=== PATIENT | male | born 1935 | race Caucasian/White ===

== ENCOUNTER 2022-12-20 22:36 | Inpatient (IN) | payer OTHER, MEDICAID ==
[~2022-12-20] VITALS: Ht 177.8 cm; Wt 93.4 kg
[2022-12-20 22:38] VITALS: BP_SYST 145; PULSE 74; RESP 24; TEMP 98; O2SAT 95
[2022-12-20] MEDS ORDERED: NACL 0.9% 1,000 ML IV ONE (22:45)
[2022-12-20 23:27] LABS: BASOPHILS % (AUTO) 0.6 % (0.0-2.0); EOSINOPHILS # (AUTO) 0.1 K/uL (0.0-0.4); EOSINOPHILS % (AUTO) 0.9 % (0.0-4.0); HEMOGLOBIN 8.4 g/dL (14.0-18.0); LYMPHOCYTES # (AUTO) 0.7 K/uL (1.0-5.5); LYMPHOCYTES % (AUTO) 8.5 % (20.5-51.5); MEAN CORPUSCULAR HEMOGLOBIN 23 pg (27-31); MEAN CORPUSCULAR HGB CONC 30 % (32-36); MEAN CORPUSCULAR VOLUME 76 fL (79.0-98.0); MONOCYTES # (AUTO) 1.1 K/uL (0.0-1.0); MONOCYTES % (AUTO) 12.7 % (1.7-9.3); NEUTROPHILS # (AUTO) 6.5 K/uL (1.8-7.7); NEUTROPHILS % (AUTO) 77.3 % (40.0-70.0); PLATELET COUNT (AUTO) 109 K/uL (130-430); RED BLOOD CELL COUNT(AUTO) 3.67 MIL/uL (4.2-6.2); RED CELL DISTRIBUTION WIDTH 19.4 % (9.0-15.0); WHITE BLOOD COUNT (AUTO) 8.4 K/uL (4.8-10.8)
[2022-12-21] VITALS (30 sets, daily range): BP systolic 77–131; PULSE 59–79; RESP 16–29; TEMP 97.5–98.8; O2SAT 93–100
[2022-12-21 00:04] LABS: PROTHROMBIN TIME 10.4 SECS (9.5-12.5)
[2022-12-21 00:07] LABS: CALCIUM 7.8 mg/dL (8.4-11.0); CHLORIDE 99 mmol/L (98-107); CREATININE 2.05 mg/dL (0.55-1.30); GLUCOSE 244 mg/dL (74-106); POTASSIUM 5.3 mmol/L (3.5-5.1); SODIUM SERUM 137 mmol/L (136-145); UREA NITROGEN, BLOOD 30 mg/dL (8-21)
[2022-12-21] MEDS ORDERED: cefTRIAXone 1 GM IVPB PREMIX 50 ML IV ONE (00:15)
[2022-12-21 00:16] LABS: ALANINE AMINOTRANSFERASE 17 U/L (12-78); ALBUMIN 2.8 g/dL (3.4-4.8); ASPARTATE AMINOTRANSFERASE 13 U/L (10-37); LIPASE 33 U/L (73-393); TOTAL BILIRUBIN 0.4 mg/dL (0.0-1.0); TOTAL PROTEIN, SERUM 6.2 g/dL (6.4-8.3)
[2022-12-21 00:18] LABS: BILIRUBIN,URINE NEGATIVE (NEGATIVE); CLARITY/URINE Clear (CLEAR); COLOR,URINE YELLOW (YELLOW); GLUCOSE,URINE NEGATIVE (NEGATIVE); KETONES,URINE NEGATIVE (NEGATIVE); LEUKOCYTE ESTERASE ,URINE 3+ (NEGATIVE); NITRITE, URINE NEGATIVE (NEGATIVE); PH,URINE 5.5 (5.0-8.0); PROTEIN URINE NEGATIVE (NEGATIVE); UROBILINOGEN,URINE 0.2 (0.2-1.0)
[2022-12-21 00:19] LABS: ANION GAP 0 (5-15); CARBON DIOXIDE 40 mmol/L (23-29)
[2022-12-21 00:23] LABS: BLOOD, URINE TRACE (NEGATIVE)
[2022-12-21 00:27] LABS: BACTERIA,URINE MODERATE /HPF (None Seen); RBC,URINE >100 /HPF (0-3); WBC,URINE >100 /HPF (0-3)
[2022-12-21] MEDS ORDERED: CALCIUM GLUC 1 GM/100ML-NACL 100 ML IV ONE (00:30)
[2022-12-21] MEDS ORDERED: FUROSEMIDE 40 MG/4 ML VIAL IVP ONE (00:30)
[2022-12-21] MEDS ORDERED: SODIUM POLYSTYRENE SULFONATE 15 GM/60 ML UDBTL PO ONE (00:30)
[2022-12-21] MEDS ORDERED: DEXTROSE 50% JECT 50 ML DISP.SYRIN IVP ONE (00:45)
[2022-12-21] MEDS ORDERED: INSULIN REGULAR, HUMAN 10 UNITS/0.1 ML, 3 ML VIAL IVP ONE (00:45)
[2022-12-21 01:00] LABS: ABG O2 SAT% ESTIMATE 82.1 % (94.0-100.0); BLOOD GAS BASE EXCESS 7.1 mmol/L (-3.0-3.0); BLOOD GAS HCO3 41.5 mmol/L (21.0-27.0); BLOOD GAS PCO2 126.8 mmHg (32.0-45.0); BLOOD GAS PH 7.133 (7.350-7.450); BLOOD GAS PO2 63.2 mmHg (75.0-100.0)
[2022-12-21 01:01] LABS: ALLEN'S TEST POSITIVE (P); FRACTIONATED INSPIRED OXYGEN 0.36 % (0.21-100.00)
[2022-12-21] MEDS ORDERED: PIPERACILLIN/TAZO 2.25G/DEX-IS 50 ML IV ONE (03:00)
[2022-12-21] MEDS ORDERED: PIPERACILLIN/TAZOBACTAM 2.25 GM VIAL IV ONE (03:27)
[2022-12-21] MEDS: D5/0.45 NS 1,000 ML IV SCH ×2 (04:07→13:29)
[2022-12-21 04:43] LABS: COVID19 ANTIGEN SOFIA FIA NEGATIVE (NEGATIVE)
[2022-12-21 05:29] LABS: INFLUENZA TYPE A negative (NEGATIVE); INFLUENZA TYPE B NEGATIVE (NEGATIVE)
[2022-12-21 06:57] LABS: BASOPHILS % (AUTO) 0.2 % (0.0-2.0); HEMATOCRIT 28.1 % (36-54); HEMOGLOBIN 8.2 g/dL (14.0-18.0); LYMPHOCYTES # (AUTO) 0.4 K/uL (1.0-5.5); LYMPHOCYTES % (AUTO) 5.6 % (20.5-51.5); MEAN CORPUSCULAR HEMOGLOBIN 23 pg (27-31); MEAN CORPUSCULAR HGB CONC 29 % (32-36); MEAN CORPUSCULAR VOLUME 78 fL (79.0-98.0); MONOCYTES # (AUTO) 0.6 K/uL (0.0-1.0); MONOCYTES % (AUTO) 8.6 % (1.7-9.3); NEUTROPHILS # (AUTO) 6.3 K/uL (1.8-7.7); NEUTROPHILS % (AUTO) 85.6 % (40.0-70.0); PLATELET COUNT (AUTO) 88 K/uL (130-430); RED BLOOD CELL COUNT(AUTO) 3.63 MIL/uL (4.2-6.2); RED CELL DISTRIBUTION WIDTH 19.3 % (9.0-15.0); WHITE BLOOD COUNT (AUTO) 7.3 K/uL (4.8-10.8)
[2022-12-21 07:57] LABS: ALANINE AMINOTRANSFERASE 17 U/L (12-78); ALBUMIN 2.6 g/dL (3.4-4.8); ANION GAP 2 (5-15); ASPARTATE AMINOTRANSFERASE 18 U/L (10-37); CALCIUM 7.7 mg/dL (8.4-11.0); CARBON DIOXIDE 37 mmol/L (23-29); CHLORIDE 100 mmol/L (98-107); GLUCOSE 214 mg/dL (74-106); SODIUM SERUM 139 mmol/L (136-145); TOTAL BILIRUBIN 0.4 mg/dL (0.0-1.0); TOTAL PROTEIN, SERUM 5.8 g/dL (6.4-8.3); UREA NITROGEN, BLOOD 32 mg/dL (8-21)
[2022-12-21] MEDS ORDERED: NOREPINEPHRINE 4 MG/4 ML VIAL IV ONE (08:02)
[2022-12-21 08:14] LABS: ABG O2 SAT% ESTIMATE 97.9 % (94.0-100.0); BLOOD GAS BASE EXCESS 3.5 mmol/L (-3.0-3.0); BLOOD GAS HCO3 34.6 mmol/L (21.0-27.0); BLOOD GAS PO2 133.5 mmHg (75.0-100.0)
[2022-12-21 08:17] LABS: ALLEN'S TEST POSITIVE (P); BLOOD GAS PH 7.217 (7.350-7.450)
[2022-12-21] MEDS ORDERED: NOREPINEPHRINE BITARTRATE 4 MG in NS 246 ML IV PRN (08:30)
[2022-12-21 09:06] LABS: PROTHROMBIN TIME 10.2 SECS (9.5-12.5)
[2022-12-21] MEDS ORDERED: HEPARIN SODIUM,PORCINE 5,000 UNITS/ML VIAL SUBCUT ONE (09:45)
[2022-12-21] MEDS: IPRATROPIUM/ALBUTEROL SULFATE 3 ML AMPUL.NEB (DUONEB) INH SCH ×4 (11:16→23:09)
[2022-12-21] MEDS: METHYLPREDNISOLONE SOD SUCC 40 MG/ML VIAL IVP SCH (13:25)
[2022-12-21] MEDS: PIPERACILLIN/TAZO 3.375/DEX-IS 50 ML IV SCH ×2 (15:03→22:25)
[2022-12-21] MEDS: HEPARIN SODIUM,PORCINE 5,000 UNITS/ML VIAL SUBCUT SCH ×2 (15:37→22:00)
[2022-12-21] MEDS ORDERED: INSU100I26 SQ (16:45)
[2022-12-21] MEDS ORDERED: FAMO20TA8 PO (16:45)
[2022-12-21] MEDS ORDERED: HYDR-4037 PO (16:45)
[2022-12-21] MEDS ORDERED: CARV3.1246 PO (16:45)
[2022-12-21] MEDS ORDERED: SSNOVOLOG SUBCUT (16:45)
[2022-12-21] MEDS ORDERED: [UNRECOGNIZED DRUG - OTHER] (16:45)
[2022-12-21] MEDS ORDERED: ROSU40TA PO (16:45)
[2022-12-21] MEDS ORDERED: FURO20TA4 PO (16:45)
[2022-12-21] MEDS ORDERED: ISO10 PO (16:45)
[2022-12-21] MEDS ORDERED: LYR25 PO (16:45)
[2022-12-21] MEDS ORDERED: INSULIN ASPART 100 UNITS/ML, 10 ML VIAL (NovoLOG) SUBCUT PRN (17:15)
[2022-12-21] MEDS: hydrALAZINE HCL 10 MG TABLET PO SCH (18:42)
[2022-12-21] MEDS: ISOSORBIDE DINITRATE 10 MG TABLET (ISORDIL) PO SCH (22:22)
[2022-12-21] MEDS: ATORVASTATIN 20 MG TABLET PO SCH (22:22)
[2022-12-21] MEDS: CARVEDILOL 3.125 MG TABLET (COREG) PO SCH (22:24)
[2022-12-21] MEDS: INSULIN LISPRO SLIDING SCALE 100 UNITS/ML, 3 ML VIAL (humaLOG) SUBCUT PRN (23:35)
[2022-12-22] VITALS (9 sets, daily range): BP systolic 103–136; PULSE 62–97; RESP 18–21; TEMP 97.7–98.2; O2SAT 95–98
[2022-12-22] MEDS: hydrALAZINE HCL 10 MG TABLET PO SCH ×3 (00:54→18:02)
[2022-12-22] MEDS: IPRATROPIUM/ALBUTEROL SULFATE 3 ML AMPUL.NEB (DUONEB) INH SCH ×6 (03:00→22:55)
[2022-12-22] MEDS: HEPARIN SODIUM,PORCINE 5,000 UNITS/ML VIAL SUBCUT SCH ×3 (06:00→21:46)
[2022-12-22] MEDS: PIPERACILLIN/TAZO 3.375/DEX-IS 50 ML IV SCH (06:40)
[2022-12-22] MEDS: INSULIN LISPRO SLIDING SCALE 100 UNITS/ML, 3 ML VIAL (humaLOG) SUBCUT PRN ×4 (06:43→21:47)
[2022-12-22 06:54] LABS: HEMATOCRIT 24.8 % (36-54); HEMOGLOBIN 7.6 g/dL (14.0-18.0); MEAN CORPUSCULAR HEMOGLOBIN 23 pg (27-31); MEAN CORPUSCULAR HGB CONC 31 % (32-36); MEAN CORPUSCULAR VOLUME 76 fL (79.0-98.0); RED BLOOD CELL COUNT(AUTO) 3.29 MIL/uL (4.2-6.2); RED CELL DISTRIBUTION WIDTH 19.7 % (9.0-15.0); WHITE BLOOD COUNT (AUTO) 3.4 K/uL (4.8-10.8)
[2022-12-22 07:07] LABS: ALANINE AMINOTRANSFERASE 17 U/L (12-78); ALBUMIN 2.4 g/dL (3.4-4.8); ANION GAP 2 (5-15); ASPARTATE AMINOTRANSFERASE 11 U/L (10-37); CALCIUM 7.6 mg/dL (8.4-11.0); CARBON DIOXIDE 35 mmol/L (23-29); CHLORIDE 100 mmol/L (98-107); CREATININE 2.07 mg/dL (0.55-1.30); GLUCOSE 320 mg/dL (74-106); PHOSPHORUS 2.9 mg/dL (2.7-4.5); POTASSIUM 4.4 mmol/L (3.5-5.1); SODIUM SERUM 137 mmol/L (136-145); TOTAL BILIRUBIN 0.5 mg/dL (0.0-1.0); TOTAL PROTEIN, SERUM 5.6 g/dL (6.4-8.3); UREA NITROGEN, BLOOD 33 mg/dL (8-21)
[2022-12-22 07:44] LABS: ERYTHROCYTE SEDIMENTATION RATE 11 MM/HR (0-15)
[2022-12-22] MEDS: FAMOTIDINE 20 MG TABLET PO SCH (08:53)
[2022-12-22] MEDS: PREGABALIN 25 MG CAPSULE (LYRICA) PO SCH (08:55)
[2022-12-22] MEDS: ISOSORBIDE DINITRATE 10 MG TABLET (ISORDIL) PO SCH ×3 (08:56→21:44)
[2022-12-22] MEDS: CARVEDILOL 3.125 MG TABLET (COREG) PO SCH ×2 (08:56→21:45)
[2022-12-22] MEDS: METHYLPREDNISOLONE SOD SUCC 40 MG/ML VIAL IVP SCH (09:00)
[2022-12-22 09:52] LABS: PLATELET COUNT (AUTO) 97 K/uL (130-430)
[2022-12-22] MEDS: D5/0.45 NS 1,000 ML IV SCH (10:20)
[2022-12-22] MEDS ORDERED: AZITHROMYCIN 250 MG TABLET PO ONE (12:30)
[2022-12-22] MEDS: CEFEPIME 2 GM in D5W 100 ML IV SCH (14:20)
[2022-12-22] MEDS: ATORVASTATIN 20 MG TABLET PO SCH (21:44)
[2022-12-23] VITALS (13 sets, daily range): BP systolic 113–135; PULSE 61–70; RESP 18–20; TEMP 97.8–98.6; O2SAT 95–99
[2022-12-23] MEDS: hydrALAZINE HCL 10 MG TABLET PO SCH ×3 (01:41→17:19)
[2022-12-23] MEDS: IPRATROPIUM/ALBUTEROL SULFATE 3 ML AMPUL.NEB (DUONEB) INH SCH ×6 (03:36→23:11)
[2022-12-23] MEDS: HEPARIN SODIUM,PORCINE 5,000 UNITS/ML VIAL SUBCUT SCH ×3 (06:00→21:23)
[2022-12-23] MEDS: INSULIN LISPRO SLIDING SCALE 100 UNITS/ML, 3 ML VIAL (humaLOG) SUBCUT PRN ×4 (06:00→20:21)
[2022-12-23] MEDS: D5/0.45 NS 1,000 ML IV SCH (06:01)
[2022-12-23 06:21] LABS: BASOPHILS % (AUTO) 0.8 % (0.0-2.0); EOSINOPHILS # (AUTO) 0.1 K/uL (0.0-0.4); EOSINOPHILS % (AUTO) 2.6 % (0.0-4.0); HEMATOCRIT 24.1 % (36-54); HEMOGLOBIN 7.4 g/dL (14.0-18.0); LYMPHOCYTES # (AUTO) 0.6 K/uL (1.0-5.5); LYMPHOCYTES % (AUTO) 17.9 % (20.5-51.5); MEAN CORPUSCULAR HEMOGLOBIN 23 pg (27-31); MEAN CORPUSCULAR HGB CONC 31 % (32-36); MEAN CORPUSCULAR VOLUME 76 fL (79.0-98.0); MONOCYTES # (AUTO) 0.5 K/uL (0.0-1.0); MONOCYTES % (AUTO) 13.8 % (1.7-9.3); NEUTROPHILS # (AUTO) 2.3 K/uL (1.8-7.7); NEUTROPHILS % (AUTO) 64.9 % (40.0-70.0); PLATELET COUNT (AUTO) 91 K/uL (130-430); RED BLOOD CELL COUNT(AUTO) 3.18 MIL/uL (4.2-6.2); RED CELL DISTRIBUTION WIDTH 19.7 % (9.0-15.0); WHITE BLOOD COUNT (AUTO) 3.5 K/uL (4.8-10.8)
[2022-12-23 06:23] LABS: ERYTHROCYTE SEDIMENTATION RATE 5 MM/HR (0-15)
[2022-12-23 06:26] LABS: ANION GAP 2 (5-15); CALCIUM 7.5 mg/dL (8.4-11.0); CARBON DIOXIDE 34 mmol/L (23-29); CHLORIDE 102 mmol/L (98-107); GLUCOSE 232 mg/dL (74-106); POTASSIUM 4.4 mmol/L (3.5-5.1); SODIUM SERUM 138 mmol/L (136-145); UREA NITROGEN, BLOOD 29 mg/dL (8-21)
[2022-12-23] MEDS: METHYLPREDNISOLONE SOD SUCC 40 MG/ML VIAL IVP SCH (09:00)
[2022-12-23] MEDS: ISOSORBIDE DINITRATE 10 MG TABLET (ISORDIL) PO SCH ×3 (09:09→20:18)
[2022-12-23] MEDS: AZITHROMYCIN 250 MG TABLET PO SCH (09:09)
[2022-12-23] MEDS: CARVEDILOL 3.125 MG TABLET (COREG) PO SCH ×2 (09:09→20:18)
[2022-12-23] MEDS: PREGABALIN 25 MG CAPSULE (LYRICA) PO SCH (09:10)
[2022-12-23] MEDS: FAMOTIDINE 20 MG TABLET PO SCH (09:10)
[2022-12-23] MEDS: CEFEPIME 2 GM in D5W 100 ML IV SCH (14:06)
[2022-12-23] MEDS: ATORVASTATIN 20 MG TABLET PO SCH (20:17)
[2022-12-24] VITALS (10 sets, daily range): BP systolic 116–122; PULSE 61–90; RESP 16–17; TEMP 96.3–98.6; O2SAT 68–98
[2022-12-24] MEDS: hydrALAZINE HCL 10 MG TABLET PO SCH ×2 (01:27→09:19)
[2022-12-24] MEDS: D5/0.45 NS 1,000 ML IV SCH (02:11)
[2022-12-24] MEDS: IPRATROPIUM/ALBUTEROL SULFATE 3 ML AMPUL.NEB (DUONEB) INH SCH ×4 (03:00→15:36)
[2022-12-24] MEDS: HEPARIN SODIUM,PORCINE 5,000 UNITS/ML VIAL SUBCUT SCH ×2 (06:25→14:00)
[2022-12-24] MEDS: INSULIN LISPRO SLIDING SCALE 100 UNITS/ML, 3 ML VIAL (humaLOG) SUBCUT PRN ×2 (06:26→12:23)
[2022-12-24 07:30] LABS: BASOPHILS % (AUTO) 0.6 % (0.0-2.0); EOSINOPHILS # (AUTO) 0.2 K/uL (0.0-0.4); EOSINOPHILS % (AUTO) 5.5 % (0.0-4.0); HEMATOCRIT 24.6 % (36-54); HEMOGLOBIN 7.5 g/dL (14.0-18.0); LYMPHOCYTES # (AUTO) 0.7 K/uL (1.0-5.5); LYMPHOCYTES % (AUTO) 18.8 % (20.5-51.5); MEAN CORPUSCULAR HEMOGLOBIN 23 pg (27-31); MEAN CORPUSCULAR HGB CONC 30 % (32-36); MEAN CORPUSCULAR VOLUME 77 fL (79.0-98.0); MONOCYTES # (AUTO) 0.5 K/uL (0.0-1.0); MONOCYTES % (AUTO) 14.4 % (1.7-9.3); NEUTROPHILS # (AUTO) 2.1 K/uL (1.8-7.7); NEUTROPHILS % (AUTO) 60.7 % (40.0-70.0); PLATELET COUNT (AUTO) 89 K/uL (130-430); RED CELL DISTRIBUTION WIDTH 20.7 % (9.0-15.0); WHITE BLOOD COUNT (AUTO) 3.5 K/uL (4.8-10.8)
[2022-12-24 07:58] LABS: ALANINE AMINOTRANSFERASE 18 U/L (12-78); ALBUMIN 2.4 g/dL (3.4-4.8); ANION GAP 1 (5-15); ASPARTATE AMINOTRANSFERASE 17 U/L (10-37); CALCIUM 7.5 mg/dL (8.4-11.0); CARBON DIOXIDE 36 mmol/L (23-29); CHLORIDE 101 mmol/L (98-107); CREATININE 1.57 mg/dL (0.55-1.30); GLUCOSE 190 mg/dL (74-106); PHOSPHORUS 2.3 mg/dL (2.7-4.5); POTASSIUM 4.6 mmol/L (3.5-5.1); SODIUM SERUM 138 mmol/L (136-145); TOTAL BILIRUBIN 0.4 mg/dL (0.0-1.0); TOTAL PROTEIN, SERUM 5.4 g/dL (6.4-8.3); UREA NITROGEN, BLOOD 26 mg/dL (8-21)
[2022-12-24 08:06] LABS: FERRITIN 143 ng/mL (30-400); FOLATE (FOLIC ACID) 7.1 ng/mL (>3.0)
[2022-12-24 09:00] LABS: ERYTHROCYTE SEDIMENTATION RATE 4 MM/HR (0-15)
[2022-12-24] MEDS: ISOSORBIDE DINITRATE 10 MG TABLET (ISORDIL) PO SCH ×2 (09:18→15:04)
[2022-12-24] MEDS: FAMOTIDINE 20 MG TABLET PO SCH (09:18)
[2022-12-24] MEDS: AZITHROMYCIN 250 MG TABLET PO SCH (09:18)
[2022-12-24] MEDS: CARVEDILOL 3.125 MG TABLET (COREG) PO SCH (09:20)
[2022-12-24] MEDS: PREGABALIN 25 MG CAPSULE (LYRICA) PO SCH (09:20)
[2022-12-24] MEDS: METHYLPREDNISOLONE SOD SUCC 40 MG/ML VIAL IVP SCH (10:05)
[2022-12-24 10:06] LABS: ANTI NUCLEAR AB WITH REFLEX Negative (Negative)
[2022-12-24] MEDS ORDERED: LEVO-62 PO (10:32)
[2022-12-24] MEDS ORDERED: PRED20TA PO (10:33)
[2022-12-24] MEDS: CEFEPIME 2 GM in D5W 100 ML IV SCH (14:50)
[2022-12-24] MEDS ORDERED: BALSAM PERU/CASTOR OIL 56.7 GM OINT...G. TP ONE (17:00)
[2022-12-24] MEDS ORDERED: MENTHOL/ZINC OXIDE 113 GM OINT. TP PRN (17:00)
[2022-12-25] MEDS ORDERED: BALSAM PERU/CASTOR OIL 56.7 GM OINT...G. TP SCH (09:00)
== END 2022-12-24 19:11 | disposition home health service (06) | DRG 871 ==
LOC: SED 22:36 → SIC 12-21 01:33 → STU 12-21 21:13 → SMU 12-24 12:14
PROVIDERS: ADMIT Preventive Medicine Preventive Medicine/Occupational Environmental Medicine; ATTEND Preventive Medicine Preventive Medicine/Occupational Environmental Medicine
PROC: 5A09357 Assistance with Respiratory Ventilation, Less than 24 Consecutive Hours, Continuous Positive Airway Pressure (ICD-10-PCS; principal; 2022-12-21)
PROC: 05HY33Z Insertion of Infusion Device into Upper Vein, Percutaneous Approach (ICD-10-PCS; 2022-12-21)
PROC: B54MZZA Ultrasonography of Right Upper Extremity Veins, Guidance (ICD-10-PCS; 2022-12-21)
DX: A41.9 Sepsis, unspecified organism (principal); E43 Unspecified severe protein-calorie malnutrition; J18.9 Pneumonia, unspecified organism; J96.01 Acute respiratory failure with hypoxia; R65.21 Severe sepsis with septic shock; D61.818 Other pancytopenia; E87.29 Other acidosis; N39.0 Urinary tract infection, site not specified; N17.9 Acute kidney failure, unspecified; J81.1 Chronic pulmonary edema; E44.0 Moderate protein-calorie malnutrition; E83.41 Hypermagnesemia; E83.51 Hypocalcemia; E78.5 Hyperlipidemia, unspecified; E83.39 Other disorders of phosphorus metabolism; E83.52 Hypercalcemia; Z66 Do not resuscitate; Z20.822 Contact with and (suspected) exposure to COVID-19; E88.09 Other disorders of plasma-protein metabolism, not elsewhere classified; J42 Unspecified chronic bronchitis; E66.9 Obesity, unspecified; I12.9 Hypertensive chronic kidney disease with stage 1 through stage 4 chronic kidney disease, or unspecified chronic kidney disease; E11.22 Type 2 diabetes mellitus with diabetic chronic kidney disease; N18.32 Chronic kidney disease, stage 3b; E11.65 Type 2 diabetes mellitus with hyperglycemia; D63.8 Anemia in other chronic diseases classified elsewhere; B96.5 Pseudomonas (aeruginosa) (mallei) (pseudomallei) as the cause of diseases classified elsewhere; Z99.81 Dependence on supplemental oxygen; Z68.29 Body mass index [BMI] 29.0-29.9, adult
CPT/HCPCS: 36415; 36600; 70450-TC; 71045; 76376; 76770; 80048; 80053; 81000; 82140; 82607; 82728; 82746; 82803; 82962; 83605; 83690; 83735; 83880; 84100; 84484; 85025; 85610-TC; 85651-TC; 85730-TC; 86022; 86038; 87040; 87081; 87086; 93005; 94640; 94660; 94760; 96361; 96365; 97110-GP; 97163-GP; 97530-GP; 99291; G0378; J0692; J0696; J1030; J1644; J1815; J1940; J2543; J7060; Q0144